=== PATIENT | male | born 1975 | race Caucasian/White ===

== ENCOUNTER 2018-09-28 10:58 | Day surgery (SDC) | payer OTHER ==
[~2018-09-28] VITALS: Ht 190.5 cm; Wt 84.3 kg
[2018-09-28 11:39] VITALS: BP 124/80
== END 2018-09-28 15:30 | disposition home or self-care (01) ==
LOC: OUT 10:58
PROVIDERS: ATTEND Orthopaedic Surgery
DX: S83.231A Complex tear of medial meniscus, current injury, right knee, initial encounter (principal); M65.861 Other synovitis and tenosynovitis, right lower leg; Z79.1 Long term (current) use of non-steroidal anti-inflammatories (NSAID); X58.XXXA Exposure to other specified factors, initial encounter; Y93.89 Activity, other specified; Y92.89 Other specified places as the place of occurrence of the external cause; Y99.8 Other external cause status
CPT/HCPCS: 29881; J0690; J1100; J2250; J2405; J2704; J2795; J3010; J3490; J7120